=== PATIENT | male | born 1940 | race Caucasian/White ===

== ENCOUNTER → 2021-03-25 09:57 | Outpatient (CLI) | payer BC, MEDICARE, SELFPAY | PROVIDERS: Visit Provider Internal Medicine Gastroenterology | DX: Z01.812 Encounter for preprocedural laboratory examination (principal); Z20.822 Contact with and (suspected) exposure to COVID-19; Z13.810 Encounter for screening for upper gastrointestinal disorder; Z12.11 Encounter for screening for malignant neoplasm of colon | CPT/HCPCS: U0003 ==

== ENCOUNTER 2021-03-27 09:51 | Day surgery (SDC) | payer BC, MEDICARE, SELFPAY ==
[2021-03-24 09:52] VITALS: BMI 29.5
[2021-03-27 10:32] VITALS: BP 128/71; PULSE 72; RESP 18; TEMP 36.4; O2SAT 96
[2021-03-27 10:49] LABS: POC Glucose,Bedside 108 (70-110)
--- NOTE | 2021-03-27 11:22 | P.PN_ITS ---
[facility] Anesthesia Checklist - Patient Identification Patient Identification: Arm Band - Structural Data Admitted From: Home Planned Operative Procedure/s: colonoscopy Consent for Planned Operative Procedure(s) Verified: Yes Verified Documents: Surgical Consent, History and Physical - NPO Status Verified Time NPO: 00:00 - Additional verifications Anesthesia Reactions: No - Airway Assessment C-Spine Mobility Assessed: Yes (mp2) TMJ Mobility Assessed: Yes Dentition: Dentures-good fit - Neurological Assessment Level of Consciousness: Awake, Alert - Anesthesia Plan Anesthesia Risk discussed: Yes Anesthesia Plan: Verified ASA Class: III Anesthesia Type: MAC [facility] History Medical History: Reports:: Aneurysm, Arrhythmia, Chronic Obstructive Pulmonary Disease (COPD), Diabetes Mellitus Type 2, Internal Pacemaker, Myocardial Infarction Denies:: Cancer, Diabetes Mellitus Type 1, MRSA, Seizures *Have you ever received a pneumonia vaccine?: Yes *Have you received a flu vaccine this season?: No Anesthesia experience/problems:: nac Laterality Cases: Bilateral: Cataract Other Surgeries: Yes: Colon Resection, Pacemaker Amputation: No Fractures: No - *Social History Smoking Status: Never smoker Alcohol Intake: never Substance Use Type: denies use *Occupational Status:: employed, retired Housing: house Household Members: spouse *Travel in the last 8 weeks: None Family Hx:: No significant family history
--- NOTE | 2021-03-27 11:37 | P.PCN_ITS ---
[facility] Procedure Note Procedure Note:: Upper Endoscopy Procedure Report: Esophagogastroduodenoscopy with cold biopsies and TTS balloon dilation Endoscopost: Zaire Willoughby II, MD Referring Physician: Wily Yanes MD Date of Procedure: March 27, 2021 Equipment: Olympus GIF 190 standard upper endoscope Sedation: MAC sedation Indications: Mr. Mabry is an 80-year-old gentleman with iron deficiency anemia. The patient is on Eliquis and Plavix. He does have heartburn and reflux that occurs possibly once every couple of weeks. He reports some dysphagia. He has some minor bloating. He reports some chronic diarrhea that is not new. This is his first upper endoscopy for diagnostic purposes. Procedure: Prior to the procedure, a history and physical exam was performed, and patient's medications and allergies were reviewed. The risks, benefits and alternatives of the sedation and procedure were discussed with the patient. All questions were answered and informed consent was obtained. The patient was brought to the procedure room. Patient identification and proposed procedure were verified by the physician and the nurse. The patient was placed in a left lateral decubitus position and the scope was passed under direct vision. Throughout the procedure, the patient's blood pressure, pulse, and oxygen saturations were monitored continuously. The upper GI endoscopy was accomplished without difficulty. The patient tolerated the procedure well. Findings: The scope was passed directly into the upper esophagus and advanced to the third portion of the duodenum. The post bulbar duodenum and duodenal bulb were normal with normal mucosa and conniventes. Cold biopsies were taken from the post bulbar duodenum to rule out celiac disease. The scope was withdrawn through a normal duodenal bulb and pylorus into the stomach. There was some mild linear reactive gastropathy of the antrum. The remainder of the body and fundus of the stomach were grossly normal. Upon retroflexion there was a very small sliding 1 to 2 cm hiatal hernia. There were no ulcerations or erosions. There were no Soito's erosions. 2 biopsies were taken in the antrum and along the lesser curvature for histology to rule out gastritis and/or H pylori. The scope was then withdrawn into the esophagus. There was a distal Schatzki's ring and a serrated Z-line. Biopsies were taken at the GE junction. The Schatzki's ring was dilated to 60 English/20 mm with a TTS hydrostatic balloon. The remainder of the esophageal mucosa was normal. Impression: 1. Schatzki's ring dilated to 20 mm 2. Nonerosive GERD with very small sliding hiatal hernia 3. Mild linear reactive gastropathy Plan: I will follow-up the biopsies. There was certainly no clear source of the patient's iron deficiency anemia. I will proceed with diagnostic colonoscopy for further evaluation. I will place the patient on omeprazole 20 mg p.o. daily x3 months.
--- NOTE | 2021-03-27 12:01 | HMH.PROC ---
[facility] Procedure Note Procedure Note:: Colonoscopy Procedure Report: Colonoscopy with cold snare polypectomy Endoscopist: Zaire Willoughby II, MD Referring physician: Wily Yanes MD Date of Procedure: March 27, 2021 Equipment: Olympus 190 variable stiffness pediatric colonoscope Sedation: MAC sedation Indication: Mr. Mabry is an 80-year-old gentleman with iron deficiency anemia. He is on Plavix and aspirin. He reports no rectal bleeding, hematochezia or melena. He has had no abdominal pain or change in bowel habits. He does have some chronic diarrhea. He does get some bloating. He has a personal history of adenomatous colon polyps. He had 3 colonoscopies (July 2001, June 2006 and August 2012) at which time only hyperplastic polyps were removed. His last colonoscopy in August 2017 revealed 7 polyps (tubular adenomas x4/hyperplastic polyps x3) which were removed. He does state that his mother had colon cancer in her 80s. The patient did have perforated diverticulitis in 1994 and had temporary colostomy with later takedown and reanastomosis. Procedure: Prior to the procedure, a history and physical exam was performed, and patient's medications and allergies were reviewed. The risks, benefits and alternatives of the sedation and procedure were discussed with the patient. All questions were answered and informed consent was obtained. The patient was brought to the procedure room. Patient identification and proposed procedure were verified by the physician and the nurse. The patient was placed in a left lateral decubitus position and the scope was passed under direct vision. Throughout the procedure, the patient's blood pressure, pulse, and oxygen saturations were monitored continuously. The colonoscopy was accomplished without difficulty. The patient tolerated the procedure well. Findings: On digital rectal examination there was normal rectal tone. There were no external hemorrhoids. The prostate was 2-3+, smooth, soft, symmetric without nodules. The colonoscope was introduced through the anal canal to the rectum and advanced to the cecum. The ileocecal valve and appendiceal orifice were identified. The scope was advanced a short distance into the ileum which appeared grossly normal. The scope was then withdrawn into the colon. There were 7 polyps (ascending x3 (3, 4 and 5 mm), transverse x2 (4 and 4 mm) and descending x2 (3 and 5 mm)) which were all removed via cold snare polypectomy. There were some remaining diverticulosis in the transverse and descending colon. The anastomosis was normal. The rectum itself was normal. Upon retroflexion within the rectum there were grade 2 internal hemorrhoids. The preparation was excellent throughout with [place] Preparation Score of 9. The cecal time was 12 minutes. Impression: 1. Colonic polyps x7 2. Left-sided diverticulosis with prior LAR and normal anastomosis 3. Grade 2 internal hemorrhoids Plan: There was no source for the patient's iron deficiency anemia. I would consider Hemoccult testing. If the patient is Hemoccult positive, I would consider PillCam/video capsule enteroscopy. Even with these adenomatous polyps, I am not convinced that he will require further preventive colonoscopy. I would encourage bulking fiber supplementation on a long-term daily maintenance basis.
[2021-03-27 12:05] VITALS: BP 100/59; PULSE 71; RESP 16; TEMP 36.2; O2SAT 94
[2021-03-27 12:15] VITALS: BP 127/75; PULSE 83; RESP 16; TEMP 36.2; O2SAT 95
[2021-03-27 12:25] VITALS: BP 134/69; PULSE 77; RESP 18; TEMP 36.2; O2SAT 98
[2021-03-27 12:35] VITALS: BP 143/72; PULSE 71; RESP 18; TEMP 36.2; O2SAT 97
[2021-03-27 13:10] VITALS: BP 144/80; PULSE 86; RESP 18; TEMP 36.2; O2SAT 97
== END 2021-03-27 13:10 | disposition home or self-care (01) ==
PROVIDERS: PCP Emergency Medicine; Visit Provider Internal Medicine Gastroenterology
PROC: 0DJ08ZZ Inspection of Upper Intestinal Tract, Via Natural or Artificial Opening Endoscopic (ICD-10-PCS; CPT 43235; principal; 2021-03-27 11:00)
DX: K44.9 Diaphragmatic hernia without obstruction or gangrene (principal); K31.9 Disease of stomach and duodenum, unspecified; K63.5 Polyp of colon; K57.30 Diverticulosis of large intestine without perforation or abscess without bleeding; K64.1 Second degree hemorrhoids; K22.2 Esophageal obstruction; K21.9 Gastro-esophageal reflux disease without esophagitis; Z90.49 Acquired absence of other specified parts of digestive tract; Z86.010 Personal history of colon polyps; Z80.0 Family history of malignant neoplasm of digestive organs; D50.9 Iron deficiency anemia, unspecified; Z79.02 Long term (current) use of antithrombotics/antiplatelets; Z79.01 Long term (current) use of anticoagulants
CPT/HCPCS: 45385; 43239; 43249; 82962; C1726

== ENCOUNTER → 2021-04-13 16:22 | Outpatient (CLI) | payer BC, MEDICARE, SELFPAY ==
[2021-04-13 16:55] LABS: Adenovirus,PCR Not Detected (NotDetected); Bordetella Pertussis Not Detected (NotDetected); Chlamydophila Pneumoniae, PCR Not Detected (NotDetected); Coronavirus 229E Not Detected (NotDetected); Coronavirus NL63 Not Detected (NotDetected); Coronavirus OC43 Not Detected (NotDetected); Coronovirus HKU1,PCR Not Detected (NotDetected); Human Metapneumovirus Not Detected (NotDetected); Influenza A, PCR Not Detected (NotDetected); Influenza AH1, 2009 Not Detected (NotDetected); Influenza AH1, PCR Not Detected (NotDetected); Influenza AH3,PCR Not Detected (NotDetected); Influenza B, PCR Not Detected (NotDetected); Mycoplasma Pneumoniae, PCR Not Detected (NotDetected); Parainfluenza 1, PCR Not Detected (NotDetected); Parainfluenza 2, PCR Not Detected (NotDetected); Parainfluenza 3, PCR Not Detected (NotDetected); Parainfluenza 4, PCR Not Detected (NotDetected); Respiratory Syncytial Virus Not Detected (NotDetected); Rhinovirus/Enterovirus Not Detected (NotDetected)
[2021-04-14 08:01] LABS: Coronavirus 19, PCR Detected (NotDetected)
== END ==
PROVIDERS: PCP Emergency Medicine; Visit Provider Emergency Medicine
DX: J18.9 Pneumonia, unspecified organism (principal)
CPT/HCPCS: 87581; 87633; 87798